=== PATIENT | male | born 1980 | race Caucasian/White ===

== ENCOUNTER 2017-04-20 22:16 | Emergency (ER) | payer OTHER ==
[~2017-04-20] VITALS: Ht 180.3 cm; Wt 81.6 kg
[2017-04-20] MEDS ORDERED: TRAM-48 PO (22:57)
[2017-04-20] MEDS ORDERED: ERYT1OIN6 OP (22:57)
[2017-04-20] MEDS ORDERED: AMOX1TAB61 PO (22:57)
--- NOTE | 2017-04-20 22:57 | PHYS DOC ---
Past Medical History Past Medical History: No Pertinent History Past Surgical History: No Surgical History Alcohol Use: None Drug Use: None Adult General Chief Complaint Chief Complaint: EYE PROBLEMS HPI HPI Patient is a 36 year old male who presents with dog scratch to the right eye that happened today. He states the dog is his own and its up to date with its shots. Patient denies vision loss but states his vision is blurry to the affected eye. Review of Systems Review of Systems Constitutional: Denies fever or chills [] Eyes: Dog scratch to the right eye HENT: Denies nasal congestion or sore throat [] Respiratory: Denies cough or shortness of breath [] Cardiovascular: No additional information not addressed in HPI [] GI: Denies abdominal pain, nausea, vomiting, bloody stools or diarrhea [] : Denies dysuria or hematuria [] Musculoskeletal: Denies back pain or joint pain [] Integument: Denies rash or skin lesions [] Neurologic: Denies headache, focal weakness or sensory changes [] Endocrine: Denies polyuria or polydipsia [] All other systems were reviewed and found to be within normal limits, except as documented in this note. Current Medications Current Medications Current Medications Medications (Trade) Dose Ordered Sig/Hank Start Time Stop Time Status Last Admin Dose Admin Diphtheria/ Tetanus/Acell Pertussis (Boostrix) 0.5 ml ONCE ONCE 04/20/17 23:00 04/20/17 23:01 04/20/17 22:54 0.5 ML Fluorescein Sodium (Ful-Randee) 1 strip 1X ONCE 04/20/17 23:00 04/20/17 23:01 04/20/17 22:53 1 STRIP Tetracaine HCl (Tetracaine) 1 drop 1X ONCE 04/20/17 23:00 04/20/17 23:01 04/20/17 22:53 1 DROP Allergies Allergies Allergies Coded Allergies Type Severity Reaction Last Updated Verified No Known Drug Allergies 10/02/14 No Physical Exam Physical Exam Constitutional: Well developed, well nourished, no acute distress, non-toxic appearance. [] HENT: Normocephalic, atraumatic, bilateral external ears normal, oropharynx moist, no oral exudates, nose normal. [] Eyes: PERRLA, EOMI, right conjunctiva is mildly injected. There is an obvious corneal abrasion noted in the middle of the cornea. Neck: Normal range of motion, no tenderness, supple, no stridor. [] Cardiovascular:Heart rate regular rhythm, no murmur [] Lungs & Thorax: Bilateral breath sounds clear to auscultation [] Abdomen: Bowel sounds normal, soft, no tenderness, no masses, no pulsatile masses. [] Skin: Warm, dry, no erythema, no rash. [] Back: No tenderness, no CVA tenderness. [] Extremities: No tenderness, no cyanosis, no clubbing, ROM intact, no edema. [] Neurologic: Alert and oriented X 3, normal motor function, normal sensory function, no focal deficits noted. [] Psychologic: Affect normal, judgement normal, mood normal. [] Current Patient Data Vital Signs Vital Signs Date Time Temp Pulse Resp B/P (MAP) Pulse Ox O2 Delivery O2 Flow Rate FiO2 04/20/17 22:50 58 16 106/67 (80) 97 Room Air 04/20/17 22:26 97.6 97.6 Lab Values Laboratory Tests Test 04/20/17 22:49 Glucose (Fingerstick) 99 mg/dL (70-99) EKG EKG [] Radiology/Procedures Radiology/Procedures [] Course & Med Decision Making Course & Med Decision Making Pertinent Labs and Imaging studies reviewed. (See chart for details) Patient has corneal abrasion to the right eye from a dog scratch. Discharged with erythromycin and I give Augmentin. Tetanus updated. Follow-up with the gypsum block setter. He did have a vasovagal effect in the ED. He was laid down. His vitals were taken. He did not pass out. We gave him a few minutes in the ED and he states he feels better. He was discharged with instructions to push fluids. Provided instructions to follow-up with an gypsum block setter and PCP in one week. Dragon Disclaimer Dragon Disclaimer This electronic medical record was generated, in whole or in part, using a voice recognition dictation system. Departure Departure Impression: Primary Impression: Dog scratch Additional Impressions: Corneal abrasion, right Vaso vagal episode Disposition: 01 HOME, SELF-CARE Condition: STABLE Referrals: UNKNOWN PCP NAME (PCP) Carolina MORGAN MD Follow-up in one week Patient Instructions: Eye - Corneal Abrasion Additional Instructions: You were seen with dog scratch to the right eye. Take the prescribed antibiotics as ordered. Ensure you complete your antibiotics. Follow-up with your own primary care doctor or the provided gypsum block setter in the next 7 days. Scripts Erythromycin Base (Erythromycin) 1 Gm Oint...g. 1 APPLIC OP Q4HRS W/A, #1 MISC right eye Prov: DERRICK DSOUZA APRN 04/20/17 Tramadol Hcl (ULTRAM) 50 Mg Tablet 1 TAB PO Q6HRS, #30 TAB Prov: DERRICK DSOUZA APRN 04/20/17 Amoxicillin/Potassium Clav (AUGMENTIN 875-125 TABLET) 1 Each Tablet 1 TAB PO BID, #20 TAB Prov: DERRICK DSOUZA APRN 04/20/17 Problem Qualifiers Additional Impressions: Corneal abrasion, right Encounter type: initial encounter Qualified Codes: S05.01XA - Injury of conjunctiva and corneal abrasion without foreign body, right eye, initial encounter DERRICK DSOUZA APRN Apr 20, 2017 22:57
[2017-04-20] MEDS ORDERED: FLUORESCEIN OPHTH TEST STRIP. OS ONE (23:00)
[2017-04-20] MEDS ORDERED: DIPHTH,PERTUSS(ACELL),TET TOX 0.5 ML DISP.SYRIN. VAX IM ONE (23:00)
[2017-04-20] MEDS ORDERED: TETRACAINE 0.5% OPHTH SOLUTION 4ML BOTTLE. OS ONE (23:00)
[2017-04-20 23:02] VITALS: BP 121/79
== END 2017-04-20 23:02 | disposition home or self-care (01) ==
LOC: ER 22:16
DX: S05.01XA Injury of conjunctiva and corneal abrasion without foreign body, right eye, initial encounter (principal); R55 Syncope and collapse; X58.XXXA Exposure to other specified factors, initial encounter; Y93.89 Activity, other specified; Y92.89 Other specified places as the place of occurrence of the external cause; Y99.8 Other external cause status
CPT/HCPCS: 82962; 90471; 90715; 99283-25